=== PATIENT | female | born 1975 | race African-American/Black ===

== ENCOUNTER 2017-12-09 04:56 | Inpatient (IN) ==
[2017-12-09] MEDS ORDERED: ONDANSETRON 4 MG/2 ML VIAL IV PRN ×2 (05:08→19:15)
[2017-12-09] MEDS ORDERED: OXYTOCIN/LR 20 UNIT/1,000 ML BAG IV SCH (05:30)
[2017-12-09] MEDS: LACTATED RINGERS 1,000 ML IV SCH ×2 (06:05→13:34)
[2017-12-09 06:07] LABS: Basophils % 0.3 % (0.0-0.8); Eosinophils % 0.6 % (0.00-10.9); Hematocrit 38.7 VOL% (35.7-47.0); Hemoglobin 12.4 GM/DL (12.0-16.0); Immature Granulocytes % 0.9 %; Immature Granulocytes Absolute 0.06 #; Lymphocytes % 29.5 % (21.3-54.2); Mean Corpuscular Hemoglobin 27 PG (27-34); Mean Corpuscular Volume 85.2 FL (87-102); Mean Platelet Volume 12.5 FL (9.6-12.0); Monocytes # 0.7 10*3/uL (0.11-0.8); Monocytes % 10.8 % (1.7-12.7); Neutrophils # 3.8 10*3/uL (1.4-7.4); Neutrophils % 57.9 % (38.7-73.9); Platelet Count 141 T/CUMM (130-400); Red Blood Count 4.54 MC/CUMM (3.8-5.5); Red Cell Distribution Width 14.1 % (9.3-17.3); White Blood Count 6.6 T/CUMM (4-12)
[2017-12-09] MEDS ORDERED: BUTORPHANOL 2 MG/ML VIAL IV PRN (09:52)
[2017-12-09] MEDS ORDERED: FAMOTIDINE 20 MG/2 ML VIAL IV ONE (12:56)
[2017-12-09] MEDS ORDERED: ePHEDrine 50 MG/ML AMP IV PRN (12:56)
[2017-12-09] MEDS ORDERED: LACTATED RINGERS 1,000 ML IV ONE (12:56)
[2017-12-09] MEDS ORDERED: diphenhydrAMINE 50 MG/1 ML VIAL IV PRN ×2 (12:56)
[2017-12-09] MEDS ORDERED: CITRIC ACID/SODIUM CITRATE 30 ML UDCUP PO ONE (12:56)
[2017-12-09] MEDS ORDERED: hydrOXYzine HCL 25 MG/1 ML VIAL IM PRN (12:56)
[2017-12-09] MEDS ORDERED: PROMETHAZINE 25 MG/1 ML VIAL IM ONE (12:56)
[2017-12-09] MEDS ORDERED: fentaNYL 2 MCG/ROPIV 0.2% EPID 150 ML EPIDURAL SCH (13:00)
[2017-12-09 14:47] LABS: Apearance,Urine CLEAR (Clear); Bilirubin,Urine Negative (Negative); Blood, Urine Moderate mg/dL (Negative); Glucose,Urine (UA) Negative (Negative); Ketones,Urine 80 mg/dL (Negative); Mucus,Urine Occasional /LPF (Occasional); Nitrite,Urine Negative (Negative); Protein,Urine Negative; RBC,Urine 63 /HPF (0-4); Squamous Epithelial Cell,Urine Occasional /HPF (0-10); Urine Color Yellow (Yellow); Urine Specific Gravity 1.011 (1.001-1.035); Urine Urobilinogen < 2.0 EU/DL (0.2-1.0); WBC,Urine 1 /HPF (0-6)
[2017-12-09] MEDS ORDERED: LIDOCAINE 1% 50 ML VIAL ONE (18:38)
[2017-12-09] MEDS ORDERED: miSOPROStol 200 MCG TABLET ONE (18:38)
[2017-12-09] MEDS ORDERED: MEASLES/MUMPS/RUBELLA VACCINE 0.5 ML VIAL SUBCUT ONE (19:15)
[2017-12-09] MEDS ORDERED: HYDROCORTISONE 2.5% RECTAL CREAM 30 GM TUBE TOP PRN (19:15)
[2017-12-09] MEDS ORDERED: oxyCODONE/ACETAMINOPHEN 5-325 MG TABLET PO PRN ×2 (19:15)
[2017-12-09] MEDS ORDERED: LANOLIN 50% CREAM 0.3 OZ TUBE TOP PRN (19:15)
[2017-12-09] MEDS ORDERED: BISACODYL 10 MG SUPP RECTAL PRN (19:15)
[2017-12-09] MEDS ORDERED: DIPH/TET/ACEL PERT BOOSTER VACCINE 0.5 ML VIAL IM ONE (19:15)
[2017-12-09] MEDS ORDERED: OXYTOCIN/LR 20 UNIT/1,000 ML BAG IV ONE (19:15)
[2017-12-09] MEDS ORDERED: IBUPROFEN 800 MG TABLET PO PRN (19:15)
[2017-12-09] MEDS ORDERED: WITCH HAZEL PADS 100/JAR TOP PRN (19:15)
[2017-12-09] MEDS ORDERED: BENZOCAINE 20%/MENTHOL 0.5% SPRAY 56 GM CAN TOP PRN (19:15)
[2017-12-09] MEDS ORDERED: RHO(D) IMMUNE GLOBULIN 300 MCG SYRINGE IM ONE (19:15)
[2017-12-09] MEDS: ACETAMINOPHEN 325 MG TABLET PO PRN (21:54)
[2017-12-09] MEDS: DOCUSATE SODIUM 100 MG CAPSULE PO SCH (21:55)
[2017-12-09] MEDS: FERROUS SULFATE 325 MG TABLET PO SCH (21:56)
[2017-12-10 05:58] LABS: Basophils % 0.2 % (0.0-0.8); Eosinophils % 0.1 % (0.00-10.9); Hematocrit 36.4 VOL% (35.7-47.0); Hemoglobin 11.7 GM/DL (12.0-16.0); Immature Granulocytes % 0.7 %; Immature Granulocytes Absolute 0.09 #; Lymphocytes # 1.5 10*3/uL (1.4-4.0); Lymphocytes % 11.1 % (21.3-54.2); Mean Corpuscular HGB Conc 32.1 GM/DL (32-36); Mean Corpuscular Hemoglobin 27 PG (27-34); Mean Corpuscular Volume 84.7 FL (87-102); Mean Platelet Volume 12.8 FL (9.6-12.0); Monocytes # 1.3 10*3/uL (0.11-0.8); Monocytes % 9.8 % (1.7-12.7); Neutrophils # 10.5 10*3/uL (1.4-7.4); Neutrophils % 78.1 % (38.7-73.9); Platelet Count 125 T/CUMM (130-400); Red Cell Distribution Width 14.3 % (9.3-17.3); White Blood Count 13.4 T/CUMM (4-12)
[2017-12-10] MEDS: ASPIRIN EC 81 MG TABLET PO SCH (09:27)
[2017-12-10] MEDS: DOCUSATE SODIUM 100 MG CAPSULE PO SCH ×2 (09:27→20:00)
[2017-12-10] MEDS: FERROUS SULFATE 325 MG TABLET PO SCH ×3 (09:27→20:00)
[2017-12-10] MEDS: ACETAMINOPHEN 325 MG TABLET PO PRN (09:31)
[2017-12-11 07:34] VITALS: BP 133/72
[2017-12-11] MEDS: ASPIRIN EC 81 MG TABLET PO SCH (08:40)
[2017-12-11] MEDS: FERROUS SULFATE 325 MG TABLET PO SCH (08:40)
[2017-12-11] MEDS: DOCUSATE SODIUM 100 MG CAPSULE PO SCH (08:40)
== END 2017-12-11 13:05 | disposition home or self-care (01) | DRG 775 ==
LOC: N.LDOUT 04:56 → N.LD 04:59 → N.OB 21:20
PROVIDERS: ADMIT Obstetrics & Gynecology; ATTEND Obstetrics & Gynecology